=== PATIENT | female | born 1935 | race Caucasian/White ===

== ENCOUNTER 2017-11-19 14:43 | Emergency (ER) | payer MEDICARE ==
[2017-11-19 16:09] LABS: Absolute Lymphocytes (CBC) 1.3 K/uL (0.7-4.9); Absolute Monocytes 0.5 K/uL (0.1-1.3); Absolute Neutrophil 4.5 K/uL (1.8-8.0); Basophils % 0.6 % (0-1.3); Eosinophils % 0.7 % (0-4.4); Hematocrit 38.7 % (36.0-45.0); Lymphocytes % 20.1 % (15.3-44.8); MCH 29.1 pg (27.0-35.0); MCV 85.6 fL (80-100); Monocytes % 7.6 % (3.3-12.3); RBC Red Blood Cell Count 4.52 M/uL (3.86-4.86)
--- NOTE | 2017-11-19 16:09 | RAD REPORT ---
EXAM DESCRIPTION: CT - Head Brain Wo Cont - 11/19/2017 3:30 pm CLINICAL HISTORY: Transient alteration of awareness COMPARISON: None. TECHNIQUE: Axial 5 mm thick images of the head were obtained without IV contrast. All CT scans are performed using dose optimization technique as appropriate and may include automated exposure control or mA/KV adjustment according to patient size. FINDINGS: No intracranial hemorrhage, mass, edema or shift of mid-line structures. No acute cortical based infarction. Patient has advanced atrophy and moderate chronic ischemic change. Ventricular siz e is in proportion to volume loss. No abnormal extra-axial fluid collections. Arterial and physiologi c calcifications are present. Mastoid air cells and visualized portions of the paranasal sinuses are clear. No acute bony findings. IMPRESSION: Prominent atrophy and chronic ischemic change with no acute intracranial finding.
[2017-11-19 16:12] LABS: Protime INR 1.01
[2017-11-19 16:15] LABS: Urine Bacteria <20 /HPF (<20); Urine RBC <5 /HPF (NONE SEEN)
[2017-11-19 16:16] LABS: Urine Blood NEGATIVE (NEG); Urine Glucose NEGATIVE (NEG); Urine Protein NEGATIVE (NEG); Urine Specific Gravity 1.015 (1.005-1.030); Urine pH 8.5 (5.0-7.0)
[2017-11-19 16:16] LABS: Urine Culture Reflex Order REFLEXED
[2017-11-19 16:51] LABS: ALT/SGPT 13 U/L (12-78); AST/SGOT 13 U/L (15-37); Albumin 3.7 g/dL (3.4-5.0); Alkaline Phosphatase 55 U/L (45-117); BUN Blood Urea Nitrogen 18 mg/dL (7-18); Bicarbonate 25 mmol/L (21-32); Bilirubin Direct 0.2 mg/dL (0-0.2); Bilirubin Total 0.8 mg/dL (0.2-1.0); CKMB Creatine Kinase MB < 1.0 ng/mL (0.3-3.6); Creatine Phosphokinase 40 U/L (26-192); Glucose Level 92 mg/dL (74-106); Magnesium 2.2 mg/dL (1.8-2.4); NT PRO-BNP 1440 pg/mL (<450); Potassium 3.6 mmol/L (3.5-5.1); Protein, Total 7.2 g/dL (6.4-8.2); Sodium Level 143 mmol/L (136-145)
[2017-11-19] MEDS ORDERED: CEFTRIAXONE/SWI 1gm 1 GM/10 ML SYR ONE (16:51)
--- NOTE | 2017-11-19 17:10 | RAD REPORT ---
EXAM DESCRIPTION: RAD - Chest Single View - 11/19/2017 3:44 pm CLINICAL HISTORY: Altered mental status COMPARISON: None. TECHNIQUE: AP portable chest image was obtained 1540 hours . FINDINGS: No peripheral mass, consolidation or failure findings. Interstitial markings are prominent suspected to be baseline fibrotic change rather than interstitial edema or infiltrate. Trachea is midline. Heart and vasculature are normal. No measurable pleural effusion and no pneumotho rax. No gross bony abnormality seen. No acute aortic findings suspected. IMPRESSION: No mass, consolidation or failure. Prominent interstitial markings favored to be baseline fibrosis rather than edema or infiltrate.
--- NOTE | 2017-11-19 17:26 | EDPHYS ---
Physician Documentation [facility] Name: Roro Pfeiffer Age: 82 yrs Sex: Female : 1935 Arrival Date: 11/19/2017 Time: 14:53 Bed 2 Private MD: ED Physician Maxwell Yoo HPI: 11/19 15:20 This 82 yrs old Female presents to ER via EMS with complaints of Altered pm1 Mental Status. 15:20 The patient presents with confusion, according to the EMS report. Onset: The pm1 symptoms/episode began/occurred this morning. Possible causes: unknown. Associated signs and symptoms: Pertinent negatives: abdominal pain, chest pain, confusion, dizziness, headache, nausea, vomiting, weakness. Patient's baseline: Neuro: alert and fully oriented, Motor: no deficits, Ambulation: walks without assistance, Speech: normal. Patient alert and oriented x 3, person, location, birthday, current events. Patient does not know why her friend called the ambulance to bring her to the emergency department but she has no complaints. . Historical: - Allergies: 15:02 No Known Allergies; ae1 - Home Meds: 15:02 Lopressor 50 mg Oral tab 1 tab once daily [Active]; lisinopril 5 mg Oral tab 1 tab once ae1 daily [Active]; aspirin 81 mg Oral TbEC 1 tab once daily [Active]; lorazepam 1 mg Oral tab 1 tab once daily for Anxiety [Active]; - PMHx: 15:02 Hypertension; Anxiety; ae1 - Immunization history:: Adult Immunizations up to date. - Social history:: Smoking status: Patient/guardian denies using tobacco, never smoked. - Ebola Screening: : Patient negative for fever greater than or equal to 101.5 degrees Fahrenheit, and additional compatible Ebola Virus Disease symptoms Patient denies exposure to infectious person Patient denies travel to an Ebola-affected area in the 21 days before illness onset No symptoms or risks identified at this time. ROS: 15:20 Constitutional: Negative for fever, chills, and weight loss, Eyes: Negative for injury, pm1 pain, redness, and discharge, ENT: Negative for injury, pain, and discharge, Neck: Negative for injury, pain, and swelling, Cardiovascular: Negative for chest pain, palpitations, and edema, Respiratory: Negative for shortness of breath, cough, wheezing, and pleuritic chest pain, Abdomen/GI: Negative for abdominal pain, nausea, vomiting, diarrhea, and constipation, Back: Negative for injury and pain, : Negative for injury, bleeding, discharge, and swelling, MS/Extremity: Negative for injury and deformity, Skin: Negative for injury, rash, and discoloration, Neuro: Negative for headache, weakness, numbness, tingling, and seizure. Exam: 15:20 Constitutional: This is a well developed, well nourished patient who is awake, alert, pm1 and in no acute distress. Head/Face: Normocephalic, atraumatic. Eyes: Pupils equal round and reactive to light, extra-ocular motions intact. Lids and lashes normal. Conjunctiva and sclera are non-icteric and not injected. Cornea within normal limits. Periorbital areas with no swelling, redness, or edema. ENT: Nares patent. No nasal discharge, no septal abnormalities noted. Tympanic membranes are normal and external auditory canals are clear. Oropharynx with no redness, swelling, or masses, exudates, or evidence of obstruction, uvula midline. Mucous membranes moist. Neck: Trachea midline, no thyromegaly or masses palpated, and no cervical lymphadenopathy. Supple, full range of motion without nuchal rigidity, or vertebral point tenderness. No Meningismus. Chest/axilla: Normal chest wall appearance and motion. Nontender with no deformity. No lesions are appreciated. Cardiovascular: Regular rate and rhythm with a normal S1 and S2. No gallops, murmurs, or rubs. Normal PMI, no JVD. No pulse deficits. Respiratory: Lungs have equal breath sounds bilaterally, clear to auscultation and percussion. No rales, rhonchi or wheezes noted. No increased work of breathing, no retractions or nasal flaring. Abdomen/GI: Soft, non-tender, with normal bowel sounds. No distension or tympany. No guarding or rebound. No evidence of tenderness throughout. Back: No spinal tenderness. No costovertebral tenderness. Full range of motion. Skin: Warm, dry with normal turgor. Normal color with no rashes, no lesions, and no evidence of cellulitis. MS/ Extremity: Pulses equal, no cyanosis. Neurovascular intact. Full, normal range of motion. 15:20 Neuro: Orientation: to person, place, situation, president. Mentation: is normal, appropriate for stated age, Memory: is normal, appropriate for stated age, Cranial nerves: CN II- XII are normal as tested, Motor: moves all fours, strength is normal, strength is 5/5 in all extremities, Sensation: is normal, no obvious gross deficits. Vital Signs: 15:08 BP 204 / 78; Pulse 65; Resp 19; Temp 98.3(O); Pulse Ox 99% on R/A; Weight 68.04 kg (R); ae1 15:35 BP 199 / 82; Pulse 68; Resp 15; Pulse Ox 99% on R/A; ae1 16:00 BP 210 / 70; Pulse 71; Resp 15; Pulse Ox 100% on R/A; ae1 16:30 BP 188 / 99; Pulse 68; Resp 16; Pulse Ox 99% on R/A; ae1 NIH Stroke Scale Scores: 15:03 NIHSS Score: 1 ae1 MDM: 15:09 Patient medically screened. [facility] 17:24 Data reviewed: vital signs. Data interpreted: Pulse oximetry: on room air is 99 %. pm1 Interpretation: normal. Counseling: I had a detailed discussion with the patient and/or guardian regarding: the historical points, exam findings, and any diagnostic results supporting the discharge/admit diagnosis, lab results, radiology results, the need for outpatient follow up, to return to the emergency department if symptoms worsen or persist or if there are any questions or concerns that arise at home. 17:24 ED course: Patient alert and oriented x 3. Patient with UTI. Patient's with normal CBC, pm1 procalcitonin, lactate. Patient non-toxic. No sepsis present. Will discharge patient home with antibiotics and follow up with her PCP. 11/19 15:11 Order name: Glucose, Ancillary Testing; Complete Time: 15:15 EDMS 11/19 15:16 Order name: Basic Metabolic Panel; Complete Time: 17:13 pm1 11/19 15:16 Order name: CBC with Diff; Complete Time: 16:16 pm1 11/19 15:16 Order name: Ckmb; Complete Time: 17:13 pm1 11/19 15:16 Order name: CPK; Complete Time: 17:13 pm1 11/19 15:16 Order name: LFT's; Complete Time: 17:13 pm1 11/19 15:16 Order name: Magnesium; Complete Time: 17:13 pm11/19 15:16 Order name: NT PRO-BNP; Complete Time: 17:13 pm11/19 15:16 Order name: PT-INR; Complete Time: 16:16 pm11/19 15:16 Order name: Ptt, Activated; Complete Time: 16:16 pm11/19 15:16 Order name: Troponin (emerg Dept Use Only); Complete Time: 17:13 pm11/19 15:16 Order name: Urine Microscopic Only; Complete Time: 16:16 pm11/19 15:17 Order name: Blood Culture Adult (2) pm11/19 15:17 Order name: Lactate; Complete Time: 16:26 pm11/19 15:16 Order name: CT Head Brain wo Cont; Complete Time: 16:16 pm11/19 15:16 Order name: XRAY Chest (1 view); Complete Time: 17:13 pm11/19 15:16 Order name: EKG; Complete Time: 15:17 pm11/19 15:16 Order name: Cardiac monitoring; Complete Time: 16:15 pm11/19 15:16 Order name: EKG - Nurse/Tech; Complete Time: 16:15 pm11/19 15:16 Order name: IV Saline Lock; Complete Time: 16:15 pm11/19 15:16 Order name: Labs collected and sent; Complete Time: 16:15 pm11/19 15:16 Order name: O2 Per Protocol; Complete Time: 16:15 pm11/19 15:16 Order name: O2 Sat Monitoring; Complete Time: 16:15 pm11/19 15:16 Order name: Urine Dipstick-Ancillary (obtain specimen); Complete Time: 16:15 pm11/19 15:16 Order name: Straight Cath - Urine pm11/19 15:17 Order name: Procalcitonin; Complete Time: 16:40 pm11/19 15:56 Order name: Urine Dipstick--Ancillary (enter results); Complete Time: 16:25 bd 11/19 16:17 Order name: Urine Culture EDMS Administered Medications: 16:55 Drug: Rocephin 1 grams Route: IV; Rate: calculated rate; Site: left wrist; ae1 Disposition: 11/19/17 17:25 Discharged to Home. Impression: Urinary tract infection, site not specified. - Condition is Stable. - Discharge Instructions: Urinary Tract Infection. - Prescriptions for Bactrim DS 800- 160 mg Oral Tablet - take 1 tablet by ORAL route every 12 hours for 10 days; 20 tablet. - Medication Reconciliation Form, Thank You Letter, Antibiotic Education form. - Follow up: Emergency Department; When: As needed; Reason: Worsening of condition. Follow up: Private Physician; When: 2 - 3 days; Reason: Recheck today's complaints, Continuance of care, Re-evaluation by your physician. - Problem is new. - Symptoms have improved. NIH Stroke Scale - NIH Stroke Score Date: 11/19/2017 Time: 15:03 Total Score = 1 1a. Level of Consciousness (LOC) - 0(Alert) 1b. Level of Consciousness (LOC) (Year \T\ Age) - 1(One) 1c. LOC Commands (Open \T\ Closes Eyes/Excellence Coach) - 0(Both) 2. Best Gaze (Lateral Gaze Paresis) - 0(Normal) 3. Visual Field Loss - 0(No visual loss) 4. Facial Palsy - 0(Normal) 5a. Left Arm: Motor (10-second hold) - 0(No drift) 5b. Right Arm: Motor (10-second hold) - 0(No drift) 6a. Left Leg: Motor (5-second hold - always test supine) - 0(No drift) 6b. Right Leg: Motor (5-second hold - always test supine) - 0(No drift) 7. Limb Ataxia (finger/nose \T\ heel/de la cruz - test with eyes open) - 0(Absent) 8. Sensory Loss (pinprick arms/legs/face) - 0(Normal) 9. Best Language: Aphasia (description/naming/reading) - 0(No aphasia) 10. Dysarthria (speech clarity - read or repeat words) - 0(Normal) 11. Extinction and Inattention (visual/tactile/auditory/spatial/personal) - 0(No abnormality) Initials: ae1 Addendum: 11/25/2017 15:11 Co-signature as Attending Physician, Maxwell Yoo MD I agree with the samantha assessment and plan of care. Signatures: Dispatcher [employer] Maxwell Vigil MD MD cha Marinas, Patrick, VIOLIN TEACHER VIOLIN TEACHER pm1 Javon Jackson, RN RN ae1 Corrections: (The following items were deleted from the chart) 11/19 18:33 17:25 11/19/2017 17:25 Discharged to Home. Impression: Urinary tract infection, ae1 site not specified. Condition is Stable. Forms are Medication Reconciliation Form, Thank You Letter, Antibiotic Education, Prescription Opioid Use. Follow up: Emergency Department; When: As needed; Reason: Worsening of condition. Follow up: Private Physician; When: 2 - 3 days; Reason: Recheck today's complaints, Continuance of care, Re-evaluation by your physician. Problem is new. Symptoms have improved. pm1
--- NOTE | 2017-11-19 17:26 | ER ---
Nurse's Notes [facility] Name: Roro Pfeiffer Age: 82 yrs Sex: Female : 1935 Arrival Date: 11/19/2017 Time: 14:53 Bed 2 Private MD: Diagnosis: Urinary tract infection, site not specified Presentation: 11/19 14:56 Presenting complaint: EMS states: family states pt started having ams since this am. ae1 unable to verbalize time or year. a\T\o x 1. full rom w/ all extremities noted. no facial drooping noted. speech clear. Transition of care: patient was not received from another setting of care. Onset of symptoms was November 19, 2017 at 08:00. Risk Assessment: Do you want to hurt yourself or someone else? Patient reports no desire to harm self or others. Initial Sepsis Screen: Does the patient meet any 2 criteria? Altered Mental Status. No. Patient's initial sepsis screen is negative. Does the patient have a suspected source of infection? No. Patient's initial sepsis screen is negative. Care prior to arrival: None. 20ga sl to left hand. 14:56 Method Of Arrival: EMS: [facility] ae1 14:56 Acuity: RYLEE 2 ae1 Triage Assessment: 15:00 General: Appears uncomfortable, Behavior is cooperative, anxious. Pain: Denies pain. ae1 Neuro: Level of Consciousness is awake, alert, obeys commands, Oriented to person, place, Patient is emotional and states she is anxious. Historical: - Allergies: 15:02 No Known Allergies; ae1 - Home Meds: 15:02 Lopressor 50 mg Oral tab 1 tab once daily [Active]; lisinopril 5 mg Oral tab 1 tab once ae1 daily [Active]; aspirin 81 mg Oral TbEC 1 tab once daily [Active]; lorazepam 1 mg Oral tab 1 tab once daily for Anxiety [Active]; - PMHx: 15:02 Hypertension; Anxiety; ae1 - Immunization history:: Adult Immunizations up to date. - Social history:: Smoking status: Patient/guardian denies using tobacco, never smoked. - Ebola Screening: : Patient negative for fever greater than or equal to 101.5 degrees Fahrenheit, and additional compatible Ebola Virus Disease symptoms Patient denies exposure to infectious person Patient denies travel to an Ebola-affected area in the 21 days before illness onset No symptoms or risks identified at this time. Screenin:27 Abuse screen: Denies threats or abuse. Nutritional screening: No deficits noted. ae1 Tuberculosis screening: No symptoms or risk factors identified. Fall Risk None identified. No fall in past 12 months (0 pts). No secondary diagnosis (0 pts). IV access (20 points). Ambulatory Aid- None/Bed Rest/Nurse Assist (0 pts). Gait- Normal/Bed Rest/Wheelchair (0 pts) Mental Status- Oriented to own ability (0 pts). Vital Signs: 15:08 BP 204 / 78; Pulse 65; Resp 19; Temp 98.3(O); Pulse Ox 99% on R/A; Weight 68.04 kg (R); ae1 15:35 BP 199 / 82; Pulse 68; Resp 15; Pulse Ox 99% on R/A; ae1 16:00 BP 210 / 70; Pulse 71; Resp 15; Pulse Ox 100% on R/A; ae1 16:30 BP 188 / 99; Pulse 68; Resp 16; Pulse Ox 99% on R/A; ae1 NIH Stroke Scale Scores: 15:03 NIHSS Score: 1 ae1 ED Course: 14:53 Patient arrived in ED. jl7 14:55 Javon Jackson, RN is Primary Nurse. ae1 14:59 Triage completed. ae1 15:00 Placed in gown. Bed in low position. Call light in reach. Side rails up X2. Cardiac ae1 monitor on. Pulse ox on. NIBP on. Warm blanket given. 15:06 EKG done, by technical supervisor. reviewed by Alirio Cardozo MD. sm3 15:08 Galdino Egan NP is PHCP. pm1 15:08 Maxwell Yoo MD is Attending Physician. pm1 15:[address] kw1 15:30 CT Head Brain wo Cont In Process Unspecified. EDMS 15:41 X-ray completed. Portable x-ray completed in exam room. Patient tolerated procedure bb2 well. 15:42 XRAY Chest (1 view) In Process Unspecified. EDMS 16:13 Urine Dipstick--Ancillary (enter results) Sent. sm4 16:14 Procalcitonin Sent. sm4 16:14 Lactate Sent. sm4 16:14 Blood Culture Adult (2) Sent. sm4 16:14 Basic Metabolic Panel Sent. sm4 16:14 Ckmb Sent. sm4 16:14 CPK Sent. sm4 16:14 LFT's Sent. sm4 16:14 Magnesium Sent. sm4 16:14 NT PRO-BNP Sent. sm4 16:16 Urine Microscopic Only Sent. sm4 16:40 Arm band placed on right wrist. EKG completed in triage. Results shown to MD. ae1 18:29 No provider procedures requiring assistance completed. Maintain EMS IV. Dressing ae1 intact. Good blood return noted. Site clean \T\ dry. Gauge \T\ site: 20 left wrist. IV discontinued, intact, bleeding controlled, No redness/swelling at site. Pressure dressing applied. Administered Medications: 16:55 Drug: Rocephin 1 grams Route: IV; Rate: calculated rate; Site: left wrist; ae1 Outcome: 17:25 Discharge ordered by MD. pm1 18:33 Discharged to home via wheelchair, with friend. ae1 18:33 Condition: stable 18:33 Discharge instructions given to patient, Instructed on discharge instructions, follow up and referral plans. medication usage, Demonstrated understanding of instructions, Prescriptions given X 1. 18:33 Patient left the ED. ae1 NIH Stroke Scale - NIH Stroke Score Date: 11/19/2017 Time: 15:03 Total Score = 1 1a. Level of Consciousness (LOC) - 0(Alert) 1b. Level of Consciousness (LOC) (Year \T\ Age) - 1(One) 1c. LOC Commands (Open \T\ Closes Eyes/Millwork Estimator) - 0(Both) 2. Best Gaze (Lateral Gaze Paresis) - 0(Normal) 3. Visual Field Loss - 0(No visual loss) 4. Facial Palsy - 0(Normal) 5a. Left Arm: Motor (10-second hold) - 0(No drift) 5b. Right Arm: Motor (10-second hold) - 0(No drift) 6a. Left Leg: Motor (5-second hold - always test supine) - 0(No drift) 6b. Right Leg: Motor (5-second hold - always test supine) - 0(No drift) 7. Limb Ataxia (finger/nose \T\ heel/de la cruz - test with eyes open) - 0(Absent) 8. Sensory Loss (pinprick arms/legs/face) - 0(Normal) 9. Best Language: Aphasia (description/naming/reading) - 0(No aphasia) 10. Dysarthria (speech clarity - read or repeat words) - 0(Normal) 11. Extinction and Inattention (visual/tactile/auditory/spatial/personal) - 0(No abnormality) Initials: ae1 Signatures: Dispatcher [employer] EDMS Galdino Egan, SHEN DICTAPHONE MECHANIC pm1 Javon Jackson RN RN ae1 Jael Carbajal RN RN jl7 Eneida Granados kw1 Kristen Taylor bb2 Rosi Parkinson sm3 Guero Leung RN RN sm4
--- NOTE | 2017-11-20 06:03 | EKG ---
Test Date: 2017-11-19 Test Time: 14:50:54 Computer Forensics Technician: JOVANNA MEASUREMENT RESULTS: Intervals: Rate: 69 IL: 124 QRSD: 86 QT: 476 QTc: 510 [place]ayson: P: 59 IL: 124 QRS: 16 T: 49 INTERPRETIVE STATEMENTS: Sinus rhythm with premature atrial complexes Nonspecific ST abnormality Prolonged QT Abnormal ECG No previous ECG available for comparison Electronically Signed On 11-20-17 06:02:23 CDT by Yared Pan
== END 2017-11-19 18:33 | disposition home or self-care (01) ==
LOC: ER 14:43
DX: N39.0 Urinary tract infection, site not specified (principal); I10 Essential (primary) hypertension; F41.9 Anxiety disorder, unspecified; Z79.82 Long term (current) use of aspirin
CPT/HCPCS: 36415; 70450; 71045; 80048; 80076; 82550; 82553; 82962; 83605; 83735; 83880; 84145; 84484; 85025; 85610; 85730; 87040 ×2; 87086; 87088; 93005; J0696; 81003; 81015; 96374; 99285